=== PATIENT | female | born 1940 | race Caucasian/White ===

== ENCOUNTER → 2016-07-01 | Outpatient (CLI) | payer MEDICARE ==
[2016-07-01 12:19] LABS: ABSOLUTE BASOPHILS # (AUTO) 0.1 10^3/uL (0.0-0.2); ABSOLUTE EOSINOPHILS # (AUTO) 0.3 10^3/uL (0.0-0.6); ABSOLUTE LYMPHOCYTES (AUTO) 1.6 10^3/uL (0.5-4.7); ABSOLUTE MONOCYTES (AUTO) 0.8 10^3/uL (0.1-1.4); ABSOLUTE NEUT (AUTO) 4.4 10^3/uL (1.7-8.2); BASOPHILS % (AUTO) 1.1 % (0-2); EOSINOPHILS % (AUTO) 4.6 % (0-6); HEMATOCRIT 35.6 % (36.0-47.0); HEMOGLOBIN 11.7 g/dL (12.0-15.5); HGB HCT DIFFERENCE -0.5; LYMPHOCYTES % (AUTO) 22.8 % (13-45); MEAN CORPUSCULAR HEMOGLOBIN 29.2 pg (27.0-33.4); MEAN CORPUSCULAR HGB CONC 32.8 g/dL (32.0-36.0); MEAN CORPUSCULAR VOLUME 89 fl (80-97); MONOCYTES % (AUTO) 10.5 % (3-13); RED BLOOD COUNT 3.99 10^6/uL (3.72-5.28); RED CELL DISTRIBUTION WIDTH 14.2 % (11.5-14.0); WHITE BLOOD COUNT 7.2 10^3/uL (4.0-10.5)
[2016-07-01 12:43] LABS: ALANINE AMINOTRANSFERASE 24 U/L (9-52); ALBUMIN 4.3 g/dL (3.5-5.0); ALKALINE PHOSPHATASE 84 U/L (38-126); ANION GAP 15 (5-19); ASPARTATE AMINO TRANSFERASE 23 U/L (14-36); BILIRUBIN,TOTAL 0.5 mg/dL (0.2-1.3); BLOOD UREA NITROGEN 23 mg/dL (7-20); CALCIUM 10.1 mg/dL (8.4-10.2); CARBON DIOXIDE 26 mmol/L (22-30); CHLORIDE 101 mmol/L (98-107); CREATININE RESULT 1.17 mg/dL (0.52-1.25); GLUCOSE 152 mg/dL (75-110); POTASSIUM 4.9 mmol/L (3.6-5.0); SODIUM 141.7 mmol/L (137-145); TOTAL PROTEIN 6.9 g/dL (6.3-8.2)
[2016-07-01 12:48] LABS: C-REACTIVE PROTEIN < 5.0 mg/L (<10.0)
[2016-07-01 13:03] LABS: ERYTHROCYTE SEDIMENTATION RATE 22 mm/hr (0-30)
== END ==
LOC: OD 11:29
PROVIDERS: ATTEND Nurse Practitioner Family
DX: L89.153 Pressure ulcer of sacral region, stage 3 (principal)
CPT/HCPCS: 36415; 72220; 80053; 85025; 85652; 86140

== ENCOUNTER 2019-07-16 13:47 | Observation (INO) | payer MEDICARE ==
--- NOTE | 2019-07-16 14:31 | ER Document Report ---
ED Medical Screen (RME) - General Chief Complaint: Chest Pain Stated Complaint: CHEST PAIN Time Seen by Provider: 07/16/19 14:22 Primary Care Provider: VALERIE WRIGHT MD [Primary Care Provider] - Follow up as needed Mode of Arrival: Wheelchair Information source: Patient Notes: This 79-year-old female with history of high cholesterol hypertension breast cancer presents today with feelings of just not feeling right today. She reports her heart felt like it was racing. She reports he just did not feel right. She felt queasy. She reports not feeling that way now. But she is feeling nauseated because she has anything to eat. Denies history of cardiac disease. EKG shows atrial flutter. Respiratory rate even unlabored I have greeted and performed a rapid initial assessment of this patient. A comprehensive ED assessment and evaluation of the patient, analysis of test results and completion of the medical decision making process will be conducted by additional ED providers. TRAVEL OUTSIDE OF THE [place] IN LAST 30 DAYS: No - Related Data Allergies/Adverse Reactions: No Known Allergies Allergy (Verified 12/22/14 07:47) Past Medical History - Social History Chew tobacco use (# tins/day): No Frequency of alcohol use: None Drug Abuse: None - Past Medical History Cardiac Medical History: Reports: Hx Hypercholesterolemia - takes meds, Hx Hypertension - several years, takes meds Denies: Hx Atrial Fibrillation, Hx Congestive Heart Failure, Hx Coronary Artery Disease, Hx Heart Attack, Hx Peripheral Vascular Disease, Hx Pulmonary Embolism, Hx Heart Murmur Pulmonary Medical History: Reports: Hx Pneumonia - 06/2014 Denies: Hx Asthma, Hx Bronchitis, Hx COPD, Hx Respiratory Failure, Hx Sleep Apnea, Hx Tuberculosis Neurological Medical History: Endocrine Medical History: Denies: Hx Graves' Disease, Hx Hyperthyroidism, Hx Hypothyroidism Renal/ Medical History: Denies: Hx End Stage Renal Disease, Hx Kidney Stones, Hx Ovarian Cysts, Hx Peritoneal Dialysis, Hx Pelvic Inflammatory Disease Malignancy Medical History: Reports: Hx Breast Cancer - Mastectomy x2 2010 "ok to take BP on either arm". Denies: Hx Cervical Cancer, Hx Leukemia, Hx Lung Cancer, Hx Ovarian Cancer GI Medical History: Musculoskeltal Medical History: Reports Hx Arthritis, Denies Hx Fibromyalgia, Denies Hx Muscular Dystrophy, Denies Hx Systemic Lupus Erythematosus Psychiatric Medical History: Denies: Hx Bipolar Disorder, Hx Depression, Hx Post Traumatic Stress Disorder, Hx Schizophrenia Traumatic Medical History: Denies: Hx Fractures Infectious Medical History: Denies: Hx HIV Past Surgical History: Reports: Hx Hysterectomy, Hx Mastectomy - Bilateral 12/2010 "OK to take BP on either arm", Hx Tonsillectomy - at 10 yrs old. Denies: Hx Appendectomy, Hx Bowel Surgery, Hx Section, Hx Cholecystectomy, Hx Coronary Artery Bypass Graft, Hx Gastric Bypass Surgery, Hx Herniorrhaphy, Hx Pacemaker, Hx Tubal Ligation - Immunizations Hx Diphtheria, Pertussis, Tetanus Vaccination: No Physical Exam - Vital signs Vitals: Pulse Ox 97 07/16/19 15:26 Course - Vital Signs Vital signs: Temp Pulse Resp BP Pulse Ox 97 07/16/19 15:26 - Laboratory Result Diagrams: 07/16/19 14:55 07/16/19 14:55 Laboratory results interpreted by me: 07/16/19 14:55 Potassium 5.1 H Chloride 97 L Est GFR ( Amer) 56 L Est GFR (MDRD) Non-Af 46 L Glucose 171 H Calcium 10.3 H AST 37 H Doctor's Discharge - Discharge Referrals: VALERIE WRIGHT MD [Primary Care Provider] - Follow up as needed
--- NOTE | 2019-07-16 15:08 | RADIOLOGY REPORT (SQ) ---
EXAM DESCRIPTION: CHEST SINGLE VIEW COMPLETED DATE/TIME: 07/16/2019 3:00 pm REASON FOR STUDY: chest fluttering COMPARISON: PA and lateral views of the chest from 04/19/2016. EXAM PARAMETERS: NUMBER OF VIEWS: One view. TECHNIQUE: An AP view of the chest was obtained. RADIATION DOSE: NA LIMITATIONS: None. FINDINGS: LUNGS AND PLEURA: No consolidation, pleural effusion or pneumothorax. MEDIASTINUM AND HILAR STRUCTURES: No mediastinal or hilar contour abnormality. HEART AND VASCULAR STRUCTURES: The cardiac silhouette and pulmonary vasculature are within normal angulo its. BONES: No acute findings. HARDWARE: Surgical clips that project within the axillae. OTHER: No other finding. IMPRESSION: No acute cardiopulmonary process. TECHNICAL DOCUMENTATION: JOB ID: [id number] [employer]- All Rights Reserved Reading location - IP/workstation name: [email or web address]
[2019-07-16 15:19] LABS: ABSOLUTE EOSINOPHILS # (AUTO) 0.1 10^3/uL (0.0-0.6); ABSOLUTE LYMPHOCYTES (AUTO) 1.6 10^3/uL (0.5-4.7); ABSOLUTE MONOCYTES (AUTO) 0.9 10^3/uL (0.1-1.4); ABSOLUTE NEUT (AUTO) 6.8 10^3/uL (1.7-8.2); BASOPHILS % (AUTO) 0.5 % (0-2); EOSINOPHILS % (AUTO) 0.6 % (0-6); HEMATOCRIT 43.5 % (36.0-47.0); HEMOGLOBIN 15.1 g/dL (12.0-15.5); LYMPHOCYTES % (AUTO) 16.6 % (13-45); MEAN CORPUSCULAR HEMOGLOBIN 31.2 pg (27.0-33.4); MEAN CORPUSCULAR HGB CONC 34.8 g/dL (32.0-36.0); MEAN CORPUSCULAR VOLUME 90 fl (80-97); MONOCYTES % (AUTO) 9.7 % (3-13); PLATELET COUNT 285 10^3/uL (150-450); RED BLOOD COUNT 4.85 10^6/uL (3.72-5.28); RED CELL DISTRIBUTION WIDTH 13.4 % (11.5-14.0); SEGMENTED NEUTROPHILS % (AUTO) 72.6 % (42-78); TOTAL CELLS COUNTED % (AUTO) 100 %; WHITE BLOOD COUNT 9.4 10^3/uL (4.0-10.5)
[2019-07-16 15:37] LABS: ALBUMIN 4.6 g/dL (3.5-5.0); ALKALINE PHOSPHATASE 116 U/L (38-126); ANION GAP 15 (5-19); ASPARTATE AMINO TRANSFERASE 37 U/L (14-36); BILIRUBIN,DIRECT 0.3 mg/dL (0.0-0.4); BILIRUBIN,TOTAL 0.6 mg/dL (0.2-1.3); BLOOD UREA NITROGEN 20 mg/dL (7-20); CALCIUM 10.3 mg/dL (8.4-10.2); CARBON DIOXIDE 26 mmol/L (22-30); CHLORIDE 97 mmol/L (98-107); GLUCOSE 171 mg/dL (75-110); POTASSIUM 5.1 mmol/L (3.6-5.0); TOTAL PROTEIN 7.9 g/dL (6.3-8.2)
--- NOTE | 2019-07-16 17:44 | EKG REPORT ---
SEVERITY:- ABNORMAL ECG - ATRIAL FLUTTER WITH 2:1 AV BLOCK , RVR : Confirmed by: Luis Howard MD 16-Jul-2019 17:43:55
[2019-07-16 19:22] LABS: APPEARANCE,URINE CLEAR; BILIRUBIN,URINE NEGATIVE (NEGATIVE); COLOR,URINE STRAW; GLUCOSE, URINE NEGATIVE (NEGATIVE); KETONES,URINE NEGATIVE (NEGATIVE); LEUKOCYTE ESTERASE,URINE NEGATIVE (NEGATIVE); NITRITE,URINE NEGATIVE (NEGATIVE); PROTEIN,URINE NEGATIVE (NEGATIVE); URINE SPECIFIC GRAVITY 1.004; UROBILINOGEN,URINE NEGATIVE mg/dL (<2.0)
[2019-07-16] MEDS ORDERED: DILTIAZEM HCL INJ 25 MG/5 ML VIAL IV ONE (21:38)
--- NOTE | 2019-07-16 21:48 | ER Document Report ---
Entered by YOLY BARTLETT SCRIBE 07/16/19 [id number] Acting as scribe for:DELORES CHEN IV, MD ED General - General Chief Complaint: Palpitations Stated Complaint: CHEST PAIN Time Seen by Provider: 07/16/19 14:22 Primary Care Provider: VALERIE WRIGHT MD [Primary Care Provider] - Follow up as needed Mode of Arrival: Wheelchair Information source: Patient Notes: This 79 year old female patient with a history of hypertension and hypercholesterolemia presents to the ED today with complaints of sudden onset heart racing that began prior to arrival this morning. Patient states that she has never experienced these symptoms before. Patient reports associated nausea, but denies any pain, shortness of breath, or dizziness. Patient denies history of A fib or irregular heart rate. TRAVEL OUTSIDE OF THE [place] IN LAST 30 DAYS: No - Related Data Allergies/Adverse Reactions: No Known Allergies Allergy (Verified 12/22/14 07:47) Past Medical History - General Information source: Patient - Social History Smoking Status: Never Smoker Cigarette use (# per day): No Chew tobacco use (# tins/day): No Smoking Education Provided: No Frequency of alcohol use: None Drug Abuse: None Family History: Reviewed & Not Pertinent Patient has suicidal ideation: No Patient has homicidal ideation: No - Past Medical History Cardiac Medical History: Reports: Hx Hypercholesterolemia - takes meds, Hx Hypertension - several years, takes meds Pulmonary Medical History: Reports: Hx Pneumonia - 06/2014 Neurological Medical History: Malignancy Medical History: Reports: Hx Breast Cancer - Mastectomy x2 2010 "ok to take BP on either arm" GI Medical History: Musculoskeletal Medical History: Reports Hx Arthritis Psychiatric Medical History: Infectious Medical History: Past Surgical History: Reports: Hx Hysterectomy, Hx Mastectomy - Bilateral 12/22 "OK to take BP on either arm", Hx Tonsillectomy - at 10 yrs old - Immunizations Hx Diphtheria, Pertussis, Tetanus Vaccination: No Hx Pneumococcal Vaccination: 02/22/16 Review of Systems - Review of Systems Constitutional: No symptoms reported EENT: No symptoms reported Cardiovascular: See HPI, Heart racing Respiratory: See HPI. denies: Short of breath Gastrointestinal: See HPI, Nausea Genitourinary: No symptoms reported Female Genitourinary: No symptoms reported Musculoskeletal: No symptoms reported Skin: No symptoms reported Hematologic/Lymphatic: No symptoms reported -: Yes All other systems reviewed and negative Physical Exam - Vital signs Vitals: Resp Pulse Ox 18 97 07/16/19 15:12 07/16/19 15:12 - General General appearance: Alert - HEENT Head: Normocephalic, Atraumatic Eyes: Normal Pupils: PERRL - Respiratory Respiratory status: No respiratory distress Chest status: Nontender Breath sounds: Normal Chest palpation: Normal - Cardiovascular Rhythm: Irregularly irregular, Tachycardia Heart sounds: Normal auscultation Murmur: No - Abdominal Inspection: Normal Distension: No distension Bowel sounds: Normal Tenderness: Nontender - Abdomen soft Organomegaly: No organomegaly - Back Back: Normal, Nontender - Extremities General upper extremity: Normal inspection General lower extremity: Normal inspection - Neurological Neuro grossly intact: Yes - Psychological Associated symptoms: Normal affect, Normal mood - Skin Skin Temperature: Warm Skin Moisture: Dry Skin Color: Normal Course - Re-evaluation Re-evalutation: 07/16/19 23:08 Results of ED MSE discussed with patient and patient's significant other. Plan to admit patient for new onset A. fib with RVR discussed with patient. Patient agreed to be admitted. All questions were answered. - Vital Signs Vital signs: Temp Pulse Resp BP Pulse Ox 22 H 126/88 H 95 07/16/19 21:48 07/16/19 21:48 07/16/19 21:48 - Laboratory Result Diagrams: 07/16/19 14:55 07/16/19 14:55 Laboratory results interpreted by me: 07/16/19 07/16/19 14:55 19:07 Potassium 5.1 H Chloride 97 L Est GFR ( Amer) 56 L Est GFR (MDRD) Non-Af 46 L Glucose 171 H Calcium 10.3 H AST 37 H Urine Blood SMALL H - Diagnostic Test Radiology reviewed: Reports reviewed - EKG Interpretation by Me Additional EKG results interpreted by me: 07/16/19 23:06 EKG obtained on 07/16/2019 at 1353 hrs. was interpreted by this MD. Findings: Irregularly irregular tachycardia. Rate 130. Normal axis. P waves do not appear to proceed QRS complexes. QRS complex appears narrow. ST segments are nonspecific.. Impression: Atrial fibrillation with RVR. - Consults DR. MARY VILLALOBOS Time consulted: 23:10 - RECOMMENDED [facility] AND IMCU ADMISSION Reason for consultation: 07/16/19 23:12 NEW ONSET A FIB WITH RVR Critical Care Note - Critical Care Note Total time excluding time spent on procedures (mins): 90 - diltiazem drip for a fib with rvr Discharge - Discharge Clinical Impression: Atrial fibrillation with RVR Condition: Good Disposition: ADMITTED OBSERVATION Admitting Provider: Vincent (Hospitalist) Unit Admitted: IMCU Referrals: VALERIE WRIGHT MD [Primary Care Provider] - Follow up as needed I personally performed the services described in the documentation, reviewed and edited the documentation which was dictated to the scribe in my presence, and it accurately records my words and actions.
[2019-07-16] MEDS ORDERED: DILTIAZEM HCL/D5W 125 MG/125 ML RTUINJ IV PRN ×2 (21:55→23:23)
[2019-07-16] MEDS ORDERED: ENOXAPARIN SODIUM INJ 100 MG/1 ML DISP.SYRIN SUBCUT ONE (23:10)
[2019-07-16] MEDS ORDERED: ACETAMINOPHEN 325 MG TABLET PO PRN (23:26)
[2019-07-16] MEDS ORDERED: LORAZEPAM INJ 2 MG/1 ML VIAL IV PRN (23:26)
[2019-07-16] MEDS ORDERED: MELATONIN 5 MG TABLET PO PRN (23:26)
[2019-07-16] MEDS ORDERED: MAGNESIUM HYDROXIDE SUSP 30 ML UDCUP PO PRN (23:26)
[2019-07-16] MEDS ORDERED: MAG HYDROX/AL HYDROX/SIMETH SUSP 30 ML UDCUP PO PRN (23:26)
[2019-07-16] MEDS ORDERED: MORPHINE SULFATE 10 MG/ML INJ IV PRN ×3 (23:26)
[2019-07-16] MEDS ORDERED: ENOXAPARIN SODIUM INJ 100 MG/1 ML DISP.SYRIN SUBCUT SCH (23:30)
[2019-07-16] MEDS ORDERED: HYDROCODONE/ACETAMINOPHEN 5-325 MG TABLET PO PRN (23:31)
[2019-07-16] MEDS ORDERED: ONDANSETRON HCL INJ/PF 4 MG/2 ML SDV IV PRN (23:34)
[2019-07-16] MEDS ORDERED: ATORVASTATIN CALCIUM 10 MG TABLET PO ONE (23:59)
[2019-07-17 02:33] LABS: CREATINE KINASE MB 0.68 ng/mL (<4.55)
[2019-07-17 02:34] LABS: TROPONIN I < 0.012 ng/mL
--- NOTE | 2019-07-17 03:40 | PDOC H&P ---
History of Present Illness Admission Date/PCP: 07/16/19 23:13 VALERIE WRIGHT MD Patient complains of: Palpitations History of Present Illness: LYSSA ROBLES is a 79 year old female who presented to the emergency room with acute heart palpitations. The patient admits that she began having a racing heartbeat, accompanied by a feeling of malaise and associated with nausea/queasiness. She denies other associated or accompanying signs and symptoms. She admits prior similar episodes related to her heart. She has not identified any aggravating or ameliorating factors for her heart palpitations. In the emergency room she was found to have atrial fibrillation with a rapid ventricular response and was treated with intravenous diltiazem as a bolus and continuous infusion. Her heart rate was adequately controlled and she was subsequently admitted to the hospital for further evaluation and treatment. Past Medical History Cardiac Medical History: Reports: Atrial Fibrillation, Hyperlipidema, Hypertension Denies: Congestive Heart Failure, Coronary Artery Disease, Myocardial Infarction, Peripheral Vascular Disease, Pulmonary Embolism, Heart Murmur Pulmonary Medical History: Reports: Pneumonia - 06/2014 Denies: Asthma, Bronchitis, Chronic Obstructive Pulmonary Disease (COPD), Respiratory Failure, Sleep Apnea, Tuberculosis EENT Medical History: Denies: Cataracts, Ears - Hearing aids Neurological Medical History: Denies: Hemorrhagic CVA, Ischemic CVA Endocrine Medical History: Reports: Obesity Denies: Diabetes Mellitus Type 1, Diabetes Mellitus Type 2, Hyperthyroidism, Hypothyroidism Renal/ Medical History: Denies: Chronic Kidney Disease, Nephrolithiasis Malignancy Medical History: Reports: Breast Cancer - Mastectomy 2010 "ok to take BP on either arm" GI Medical History: Denies: Cirrhosis, Crohn's Disease, Gastroesophageal Reflux Disease, Hepat itis, Peptic Ulcer Disease, Ulcerative Colitis Musculoskeltal Medical History: Reports: Arthritis Denies: Gout Skin Medical History: Denies: Eczema, Psoriasis Psychiatric Medical History: Denies: Alcohol Dependency, Depression, Substance Abuse, Tobacco Dependency Traumatic Medical History: Reports: None Hematology: Denies: Anemia, Bleeding Tendencies Infectious Medical History: Reports: None Past Surgical History Past Surgical History: Reports: Hysterectomy, Knee Replacement, Mastectomy - Bilateral 12/2010 "OK to take BP on either arm", Orthopedic Surgery - Bilateral knee surgeries, Tonsillectomy - at 10 yrs old Social History Information Source: Patient Lives with: Spouse/Significant other Smoking Status: Never Smoker Electronic Cigarette use?: No Frequency of Alcohol Use: None Hx Recreational Drug Use: No Drugs: None Hx Prescription Drug Abuse: No - Advance Directive Resuscitation Status: Full Code Surrogate healthcare decision maker:: Yosvany Robles Family History Family History: DM. denies: CAD, Hypertension, Malignancy Parental Family History Reviewed: Yes Children Family History Reviewed: No Sibling(s) Family History Reviewed.: Yes Medication/Allergy Home Medications: Aspirin [Aspirin EC] 81 mg PO DAILY 12/21/14 Atorvastatin Calcium [Lipitor] 10 mg PO QAM 12/21/14 Benazepril HCl 40 mg PO QAM 12/21/14 Amlodipine Besylate [Norvasc 10 mg Tablet] 10 mg PO QAM 01/03/16 Carvedilol [Coreg] 1 tab PO BID 05/07/16 Hydrochlorothiazide 25 mg PO QAM 05/07/16 Hydrocodone/Acetaminophen [[place] 5-325 mg Tablet] 1 tab PO Q6HP PRN #0 tablet 06/01/16 Rivaroxaban [Xarelto 10 mg Tablet] 10 mg PO QHS #0 tablet 06/01/16 Allergies/Adverse Reactions: No Known Allergies Allergy (Verified 12/22/14 07:47) Review of Systems Constitutional: PRESENT: as per HPI, other - Malaise. ABSENT: chills, fever(s) Eyes: ABSENT: visual disturbances, other - Eye pain Ears: ABSENT: hearing changes, other - Ear pain Nose, Mouth, and Throat: ABSENT: headache(s), mouth pain, sore throat Cardiovascular: PRESENT: as per HPI, palpitations. ABSENT: chest pain, dyspnea on exertion, edema, orthropnea Respiratory: ABSENT: cough, dyspnea Gastrointestinal: PRESENT: as per HPI, nausea. ABSENT: abdominal pain, constipation, diarrhea, vomiting Genitourinary: ABSENT: difficulty urinating, dysuria, hematuria Musculoskeletal: ABSENT: back pain, joint swelling, muscle weakness Integumentary: ABSENT: pruritus, rash Neurological: ABSENT: confusion, convulsions, focal weakness, memory loss, syncope Psychiatric: ABSENT: anxiety, depression Endocrine: ABSENT: cold intolerance, heat intolerance, polydipsia, polyphagia, polyuria Hematologic/Lymphatic: ABSENT: easy bleeding, easy bruising Allergic/Immunologic: ABSENT: seasonal rhinorrhea Physical Exam Vital Signs: Temp Pulse Resp BP Pulse Ox 22 H 146/57 H 94 07/16/19 23:16 07/16/19 23:16 07/16/19 23:16 Intake & Output 07/14/19 07/15/19 07/16/19 23:59 23:59 23:59 Intake Total 13 Balance 13 Weight 95.254 kg General appearance: PRESENT: no acute distress, cooperative, obese Head exam: PRESENT: atraumatic, normocephalic Eye exam: PRESENT: conjunctiva pink. ABSENT: conjunctival injection, scleral icterus Ear exam: PRESENT: normal external ear exam. ABSENT: bleeding, drainage Mouth exam: PRESENT: dry mucosa, neck supple Neck exam: ABSENT: thyromegaly, tracheal deviation Respiratory exam: PRESENT: clear to auscultation cathie, symmetrical, unlabored Cardiovascular exam: PRESENT: irregular rhythm - Irregularly irregular rate and rhythm. ABSENT: clicks, gallop, rubs Pulses: PRESENT: normal radial pulses, normal dorsalis pedis pul Vascular exam: PRESENT: normal capillary refill. ABSENT: pallor GI/Abdominal exam: PRESENT: normal bowel sounds, soft Rectal exam: PRESENT: deferred Extremities exam: ABSENT: joint swelling, pedal edema Musculoskeletal exam: ABSENT: deformity, dislocation Neurological exam: PRESENT: alert, oriented to person, oriented to place, oriented to time, oriented to situation, CN II-XII grossly intact. ABSENT: motor sensory deficit Psychiatric exam: PRESENT: appropriate affect, normal mood Skin exam: PRESENT: dry, intact, warm. ABSENT: jaundice, rash, urticaria Results Laboratory Results: 07/16/19 14:55 07/16/19 14:55 07/16/19 07/16/19 07/16/19 14:55 14:55 19:07 WBC 9.4 RBC 4.85 Hgb 15.1 Hct 43.5 MCV 90 MCH 31.2 MCHC 34.8 RDW 13.4 Plt Count 285 Seg Neutrophils % 72.6 Sodium 138.4 Potassium 5.1 H Chloride 97 L Carbon Dioxide 26 Anion Gap 15 BUN 20 Creatinine 1.14 Est GFR ( Amer) 56 L Glucose 171 H Calcium 10.3 H Total Bilirubin 0.6 AST 37 H Alkaline Phosphatase 116 Total Protein 7.9 Albumin 4.6 Urine Color STRAW Urine Appearance CLEAR Urine pH 6.0 Ur Specific [place] 1.004 Urine Protein NEGATIVE Urine Glucose (UA) NEGATIVE Urine Ketones NEGATIVE Urine Blood SMALL H Urine Nitrite NEGATIVE Ur Leukocyte Esterase NEGATIVE Urine WBC (Auto) 1 Urine RBC (Auto) 1 07/16/19 07/16/19 14:55 19:33 Troponin I < 0.012 < 0.012 Impressions: Chest X-Ray 07/16/19 14:29 IMPRESSION: No acute cardiopulmonary process. Assessment and Plan - Diagnosis (1) Atrial fibrillation with RVR Is this a current diagnosis for this admission?: Yes (2) Chronic anticoagulation Is this a current diagnosis for this admission?: Yes (3) Hypertension Qualifiers: Hypertension type: essential hypertension Qualified Code(s): I10 - Ess ential (primary) hypertension Is this a current diagnosis for this admission?: Yes (4) Hyperlipidemia Qualifiers: Hyperlipidemia type: unspecified Qualified Code(s): E78.5 - Hyperlipidemia, unspecified Is this a current diagnosis for this admission?: Yes (5) DJD (degenerative joint disease) of knee Qualifiers: Osteoarthritis type: primary Laterality: left Qualified Code(s): M17.12 - Unilateral primary osteoarthritis, left knee Is this a current diagnosis for this admission?: Yes (6) Obesity (BMI 30-39.9) Is this a current diagnosis for this admission?: Yes - Plan Summary Summary: Patient is admitted to the [facility] where she will receive routine supportive and supplemental cares. She will be treated with IV diltiazem via infusion titrated to a heart rate of less than 100. She will receive morphine sulfate 2 to 4 mg IV every 2 hours as needed for pain. She will receive Ativan 1 mg IV every 4 hours as needed anxiety or restlessness. Serial cardiac enzymes will be obtained. CBCs, metabolic profiles and magnesium levels will be obtained on a regular basis as appropriate. A TSH will be obtained. Patient will be continued on her usual home medications for her chronic medical problems as appropriate and per formulary availability. - Time Time Spent with patient: 15-24 minutes Medications reviewed and adjusted accordingly: Yes Anticipated discharge: Home - Inpatient Certification Based on my medical assessment, after consideration of the patient's comorbidities, presenting symptoms, or acuity I expect that the services needed warrant INPATIENT care.: Yes I certify that my determination is in accordance with my understanding of Medicare's requirements for reasonable and necessary INPATIENT services [42 CFR 412.3e].: Yes Medical Necessity: Need Close Monitoring Due to Risk of Patient Decompensation, Need For Continuous Telemetry Monitoring, Risk of Complication if Not Cared For in Hospital
[2019-07-17] MEDS ORDERED: PANTOPRAZOLE SODIUM 20 MG TABLET.DR PO SCH (06:00)
[2019-07-17] MEDS ORDERED: AMLODIPINE BESYLATE 10 MG TABLET PO SCH (08:00)
[2019-07-17] MEDS ORDERED: HYDROCHLOROTHIAZIDE 25 MG TABLET PO SCH (08:00)
[2019-07-17 08:28] LABS: HEMATOCRIT 39.4 % (36.0-47.0); HEMOGLOBIN 13.6 g/dL (12.0-15.5); MEAN CORPUSCULAR HEMOGLOBIN 30.8 pg (27.0-33.4); MEAN CORPUSCULAR HGB CONC 34.5 g/dL (32.0-36.0); MEAN CORPUSCULAR VOLUME 89 fl (80-97); PLATELET COUNT 250 10^3/uL (150-450); RED BLOOD COUNT 4.41 10^6/uL (3.72-5.28); RED CELL DISTRIBUTION WIDTH 13.4 % (11.5-14.0); WHITE BLOOD COUNT 8.5 10^3/uL (4.0-10.5)
[2019-07-17 08:47] LABS: ANION GAP 12 (5-19); BLOOD UREA NITROGEN 19 mg/dL (7-20); CALCIUM 9.5 mg/dL (8.4-10.2); CARBON DIOXIDE 23 mmol/L (22-30); CHLORIDE 102 mmol/L (98-107); CREATINE KINASE 47 U/L (30-135); GLUCOSE 149 mg/dL (75-110)
[2019-07-17 08:59] LABS: CREATINE KINASE MB 0.57 ng/mL (<4.55)
[2019-07-17 09:00] LABS: POTASSIUM 4.1 mmol/L (3.6-5.0)
[2019-07-17 09:32] LABS: TROPONIN I < 0.012 ng/mL
[2019-07-17] MEDS ORDERED: CARVEDILOL 6.25 MG TABLET PO SCH (10:00)
[2019-07-17] MEDS ORDERED: ASPIRIN 81 MG TABLET, ENT COATED PO SCH (10:00)
[2019-07-17] MEDS ORDERED: DOCUSATE SODIUM 100 MG CAPSULE PO SCH (10:00)
[2019-07-17] MEDS ORDERED: BENAZEPRIL HCL 20 MG TABLET PO SCH (10:00)
[2019-07-17] MEDS ORDERED: DILTIAZEM HCL 240 MG CAPSULE.CR PO ONE (12:45)
[2019-07-17] MEDS ORDERED: APIXABAN 5 MG TABLET PO ONE (12:46)
--- NOTE | 2019-07-17 12:51 | PDOC PROGRESS REPORT ---
Subjective Progress Note for:: 07/17/19 Subjective:: The patient feels better this morning. No fluttering in her chest. Reason For Visit: ATRIAL FIBRILLATION WITH RAPID VENTRICULAR Physical Exam Vital Signs: Temp Pulse Resp BP Pulse Ox 98.1 F 81 20 117/63 94 07/17/19 08:02 07/17/19 12:00 07/17/19 08:02 07/17/19 12:00 07/17/19 08:02 Intake & Output 07/16/19 07/17/19 07/18/19 06:59 06:59 06:59 Intake Total 134 125 Balance 134 125 Weight 102.2 kg General appearance: PRESENT: no acute distress, cooperative, morbidly obese, well-developed Head exam: PRESENT: atraumatic, normocephalic Respiratory exam: PRESENT: clear to auscultation cathie, symmetrical, unlabored. ABSENT: rales, rhonchi, tachypnea, wheezes Cardiovascular exam: PRESENT: irregular rhythm GI/Abdominal exam: PRESENT: normal bowel sounds, soft. ABSENT: distended, tenderness Neurological exam: PRESENT: alert, awake, oriented to person, oriented to place, oriented to time, oriented to situation, CN II-XII grossly intact Psychiatric exam: PRESENT: appropriate affect. ABSENT: agitated, anxious Focused psych exam: ABSENT: delusional, restlessness Results Laboratory Results: 07/17/19 08:08 07/17/19 08:08 07/16/19 07/16/19 07/16/19 14:55 14:55 14:55 WBC 9.4 RBC 4.85 Hgb 15.1 Hct 43.5 MCV 90 MCH 31.2 MCHC 34.8 RDW 13.4 Plt Count 285 Seg Neutrophils % 72.6 Sodium 138.4 Potassium 5.1 H Chloride 97 L Carbon Dioxide 26 Anion Gap 15 BUN 20 Creatinine 1.14 Est GFR ( Amer) 56 L Glucose 171 H Calcium 10.3 H Magnesium Total Bilirubin 0.6 AST 37 H Alkaline Phosphatase 116 Total Protein 7.9 Albumin 4.6 TSH Free T3 pg/mL 3.52 Urine Color Urine Appearance Urine pH Ur Specific [place] Urine Protein Urine Glucose (UA) Urine Ketones Urine Blood Urine Nitrite Ur Leukocyte Esterase Urine WBC (Auto) Urine RBC (Auto) 07/16/19 07/17/19 07/17/19 19:07 08:08 08:08 WBC 8.5 RBC 4.41 Hgb 13.6 Hct 39.4 MCV 89 MCH 30.8 MCHC 34.5 RDW 13.4 Plt Count 250 Seg Neutrophils % Sodium 137.4 Potassium 4.1 D Chloride 102 Carbon Dioxide 23 Anion Gap 12 BUN 19 Creatinine 1.08 Est GFR ( Amer) 59 L Glucose 149 H Calcium 9.5 Magnesium 1.8 Total Bilirubin AST Alkaline Phosphatase Total Protein Albumin TSH Free T3 pg/mL Urine Color STRAW Urine Appearance CLEAR Urine pH 6.0 Ur Specific [place] 1.004 Urine Protein NEGATIVE Urine Glucose (UA) NEGATIVE Urine Ketones NEGATIVE Urine Blood SMALL H Urine Nitrite NEGATIVE Ur Leukocyte Esterase NEGATIVE Urine WBC (Auto) 1 Urine RBC (Auto) 1 07/17/19 08:08 WBC RBC Hgb Hct MCV MCH MCHC RDW Plt Count Seg Neutrophils % Sodium Potassium Chloride Carbon Dioxide Anion Gap BUN Creatinine Est GFR ( Amer) Glucose Calcium Magnesium Total Bilirubin AST Alkaline Phosphatase Total Protein Albumin TSH 0.63 Free T3 pg/mL Urine Color Urine Appearance Urine pH Ur Specific [place] Urine Protein Urine Glucose (UA) Urine Ketones Urine Blood Urine Nitrite Ur Leukocyte Esterase Urine WBC (Auto) Urine RBC (Auto) 07/16/19 07/16/19 07/16/19 14:55 19:33 19:33 Creatine Kinase 50 CK-MB (CK-2) Troponin I < 0.012 < 0.012 07/16/19 07/17/19 07/17/19 19:33 01:26 01:26 Creatine Kinase 45 CK-MB (CK-2) 0.76 0.68 Troponin I Cancelled < 0.012 07/17/19 07/17/19 08:08 08:08 Creatine Kinase 47 CK-MB (CK-2) 0.57 Troponin I < 0.012 Impressions: Chest X-Ray 07/16/19 14:29 IMPRESSION: No acute cardiopulmonary process. Assessment and Plan - Plan Summary Summary: Patient is admitted to the [facility] where she will receive routine supportive and supplemental cares. She will be treated with IV diltiazem via infusion titrated to a heart rate of less than 100. She will receive morphine sulfate 2 to 4 mg IV every 2 hours as needed for pain. She will receive Ativan 1 mg IV every 4 hours as needed anxiety or restlessness. Serial cardiac enzymes will be obtained. CBCs, metabolic profiles and magnesium levels will be obtained on a regular basis as appropriate. A TSH will be obtained. Patient will be continued on her usual home medications for her chronic medical problems as appropriate and per formulary availability.
[2019-07-17 15:18] VITALS: BP 133/58
--- NOTE | 2019-07-17 15:20 | PDOC DISCHARGE SUMMARY ---
Impression - Admit/DC Date/PCP Admission Date/Primary Care Provider: 07/16/19 23:13 VALERIE RENNER MD Discharge Date: 07/17/19 - Discharge Diagnosis (1) Atrial fibrillation with RVR Is this a current diagnosis for this admission?: Yes (2) Hypertension Is this a current diagnosis for this admission?: Yes (3) Hyperlipidemia Is this a current diagnosis for this admission?: Yes (4) Chronic anticoagulation Is this a current diagnosis for this admission?: Yes (5) Morbid obesity with BMI of 40.0-44.9, adult Is this a current diagnosis for this admission?: Yes (6) DJD (degenerative joint disease) of knee Is this a current diagnosis for this admission?: Yes - Assessment Summary: Patient is admitted to the [facility] where she will receive routine supportive and forrester pplemental cares. She will be treated with IV diltiazem via infusion titrated to a heart rate of less than 100. She will receive morphine sulfate 2 to 4 mg IV every 2 hours as needed for pain. She will receive Ativan 1 mg IV every 4 hours as needed anxiety or restlessness. Serial cardiac enzymes will be obtained. CBCs, metabolic profiles and magnesium levels will be obtained on a regular basis as appropriate. A TSH will be obtained. Patient will be continued on her usual home medications for her chronic medical problems as appropriate and per formulary availability. - Additional Information Resuscitation Status: Full Code Discharge Diet: Cardiac Discharge Activity: Activity As Tolerated Referrals: VALERIE RENNER MD [Primary Care Provider] - Follow up as needed KAMRAN MELÉNDEZ MD [ACTIVE STAFF] - Prescriptions: Diltiazem HCl [Cardizem Cd 240 mg Capsule.cr] 240 mg PO DAILY 90 Days #90 capsule.cr Diltiazem HCl [Diltiazem 24Hr ER] 240 mg PO DAILY 10 Days #10 cap.sa.24h Diltiazem HCl [Diltiazem 24Hr ER] 240 mg PO DAILY 10 Days #10 cap.sa.24h Apixaban [Eliquis 5 mg Tablet] 5 mg PO BID 10 Days #20 tablet Apixaban [Eliquis 5 mg Tablet] 5 mg PO BID 90 Days #180 tablet Apixaban [Eliquis 5 mg Tablet] 5 mg PO BID 10 Days #20 tablet Home Medications: Amlodipine Besylate [Norvasc 5 mg Tablet] 5 mg PO DAILY 07/17/19 Apixaban [Eliquis 5 mg Tablet] 5 mg PO BID 10 Days #20 tablet 07/17/19 Apixaban [Eliquis 5 mg Tablet] 5 mg PO BID 10 Days #20 tablet 07/17/19 Apixaban [Eliquis 5 mg Tablet] 5 mg PO BID 90 Days #180 tablet 07/17/19 Aspirin [Adult Low Dose Aspirin EC] 81 mg PO DAILY 07/17/19 Aspirin [Ecotrin 81 mg EC Tablet] 81 mg PO DAILY tabec 07/17/19 Atorvastatin Calcium [Lipitor 10 mg Tablet] 10 mg PO QHS 07/17/19 Atorvastatin Calcium [Lipitor 10 mg Tablet] 10 mg PO QHS tablet 07/17/19 Diltiazem HCl [Cardizem Cd 240 mg Capsule.cr] 240 mg PO DAILY 90 Days #90 capsule.cr 07/17/19 Diltiazem HCl [Diltiazem 24Hr ER] 240 mg PO DAILY 10 Days #10 cap.sa.24h 07/17/19 Diltiazem HCl [Diltiazem 24Hr ER] 240 mg PO DAILY 10 Days #10 cap.sa.24h 07/17/19 Docusate Sodium [Colace 100 mg Capsule] 100 mg PO BID capsule 07/17/19 Gabapentin [Neurontin 300 mg Capsule] 300 mg PO QHS 07/17/19 Hydrochlorothiazide [Hydrodiuril 25 mg Tablet] 25 mg PO QAM tablet 07/17/19 Lisinopril/Hydrochlorothiazide [Lisinopril-Hctz 20-25 mg Tab] 1 each PO DAILY 07/17/19 History of Present Illiness History of Present Illness: LYSSA ROBLES is a 79 year old female who presented to the emergency room with acute heart palpitations. The patient admits that she began having a racing heartbeat, accompanied by a feeling of malaise and associated with nausea/queasiness. She denies other associated or accompanying signs and symptoms. She admits prior similar episodes related to her heart. She has not identified any aggravating or ameliorating factors for her heart palpitations. In the emergency room she was found to have atrial fibrillation with a rapid ventricular response and was treated with intravenous diltiazem as a bolus and continuous infusion. Her heart rate was adequately controlled and she was subsequently admitted to the hospital for further evaluation and treatment. Hospital Course Hospital Course: The patient's heart rate was rapidly controlled with the diltiazem drip. Because it is very effective she was converted to extended release diltiazem 240 mg daily. The carvedilol was discontinued. With her atrial fibrillation she now requires chronic anticoagulation. This was accomplished with apixaban. Her hypertension and hyperlipidemia were stable. She did experience her chronic pain. This is mostly from degenerative joint disease in her knee and made worse by her morbid obesity. I am referring the patient to Dr. Meléndez for outpatient cardiology. Physical Exam Vital Signs: Temp Pulse Resp BP Pulse Ox 98.1 F 87 20 133/58 H 94 07/17/19 15:16 07/17/19 15:16 07/17/19 15:16 07/17/19 15:16 07/17/19 15:16 Intake & Output 07/16/19 07/17/19 07/18/19 06:59 06:59 06:59 Intake Total 134 365 Balance 134 365 Weight 102.2 kg General appearance: PRESENT: no acute distress, cooperative, morbidly obese, well-developed Head exam: PRESENT: atraumatic, normocephalic Eye exam: PRESENT: conjunctiva pink. ABSENT: scleral icterus Ear exam: PRESENT: normal external ear exam. ABSENT: bleeding, drainage Respiratory exam: PRESENT: clear to auscultation cathie, symmetrical, unlabored. ABSENT: accessory muscle use, prolonged expiratory phas, rales, rhonchi, tachypnea, wheezes Cardiovascular exam: PRESENT: irregular rhythm GI/Abdominal exam: PRESENT: soft. ABSENT: distended - Protuberant abdomen, guarding, tenderness Rectal exam: PRESENT: deferred Gentrourinary exam: ABSENT: indwelling catheter Extremities exam: PRESENT: pedal edema Musculoskeletal exam: PRESENT: ambulatory. ABSENT: deformity Neurological exam: PRESENT: alert, awake, oriented to person, oriented to place, oriented to time, oriented to situation, CN II-XII grossly intact Psychiatric exam: PRESENT: appropriate affect, normal mood - She is very pleased to be discharging to home. ABSENT: agitated, anxious Focused psych exam: ABSENT: delusional, restlessness Skin exam: PRESENT: dry, normal color, warm. ABSENT: rash Results Laboratory Results: WBC 8.5 10^3/uL (4.0-10.5) 07/17/19 08:08 RBC 4.41 10^6/uL (3.72-5.28) 07/17/19 08:08 Hgb 13.6 g/dL (12.0-15.5) 07/17/19 08:08 Hct 39.4 % (36.0-47.0) 07/17/19 08:08 MCV 89 fl (80-97) 07/17/19 08:08 MCH 30.8 pg (27.0-33.4) 07/17/19 08:08 MCHC 34.5 g/dL (32.0-36.0) 07/17/19 08:08 RDW 13.4 % (11.5-14.0) 07/17/19 08:08 Plt Count 250 10^3/uL (150-450) 07/17/19 08:08 Lymph % (Auto) 16.6 % (13-45) 07/16/19 14:55 Adams % (Auto) 9.7 % (3-13) 07/16/19 14:55 Eos % (Auto) 0.6 % (0-6) 07/16/19 14:55 Baso % (Auto) 0.5 % (0-2) 07/16/19 14:55 Absolute Neuts (auto) 6.8 10^3/uL (1.7-8.2) 07/16/19 14:55 Absolute Lymphs (auto) 1.6 10^3/uL (0.5-4.7) 07/16/19 14:55 Absolute Monos (auto) 0.9 10^3/uL (0.1-1.4) 07/16/19 14:55 Absolute Eos (auto) 0.1 10^3/uL (0.0-0.6) 07/16/19 14:55 Absolute Basos (auto) 0.0 10^3/uL (0.0-0.2) 07/16/19 14:55 Seg Neutrophils % 72.6 % (42-78) 07/16/19 14:55 Sodium 137.4 mmol/L (137-145) 07/17/19 08:08 Potassium 4.1 mmol/L (3.6-5.0) D 07/17/19 08:08 Chloride 102 mmol/L (98-107) 07/17/19 08:08 Carbon Dioxide 23 mmol/L (22-30) 07/17/19 08:08 Anion Gap 12 (5-19) 07/17/19 08:08 BUN 19 mg/dL (7-20) 07/17/19 08:08 Creatinine 1.08 mg/dL (0.52-1.25) 07/17/19 08:08 Est GFR ( Amer) 59 (>60) L 07/17/19 08:08 Est GFR (MDRD) Non-Af 49 (>60) L 07/17/19 08:08 Glucose 149 mg/dL (75-110) H 07/17/19 08:08 Calcium 9.5 mg/dL (8.4-10.2) 07/17/19 08:08 Magnesium 1.8 mg/dL (1.6-2.3) 07/17/19 08:08 Total Bilirubin 0.6 mg/dL (0.2-1.3) 07/16/19 14:55 Direct Bilirubin 0.3 mg/dL (0.0-0.4) 07/16/19 14:55 Neonat Total Bilirubin Not Reportable 07/16/19 14:55 Neonat Direct Bilirubin Not Reportable 07/16/19 14:55 Neonat Indirect Bili Not Reportable 07/16/19 14:55 AST 37 U/L (14-36) H 07/16/19 14:55 ALT 37 U/L (<35) 07/16/19 14:55 Alkaline Phosphatase 116 U/L (38-126) 07/16/19 14:55 Creatine Kinase 47 U/L (30-135) 07/17/19 08:08 CK-MB (CK-2) 0.57 ng/mL (<4.55) 07/17/19 08:08 Troponin I < 0.012 ng/mL 07/17/19 08:08 Total Protein 7.9 g/dL (6.3-8.2) 07/16/19 14:55 Albumin 4.6 g/dL (3.5-5.0) 07/16/19 14:55 TSH 0.63 uIU/mL (0.47-4.68) 07/17/19 08:08 Free T3 pg/mL 3.52 pg/mL (2.77-5.27) 07/16/19 14:55 Urine Color STRAW 07/16/19 19:07 Urine Appearance CLEAR 07/16/19 19:07 Urine pH 6.0 (5.0-9.0) 07/16/19 19:07 Ur Specific Oneco 1.004 07/16/19 19:07 Urine Protein NEGATIVE mg/dL (NEGATIVE) 07/16/19 19:07 Urine Glucose (UA) NEGATIVE mg/dL (NEGATIVE) 07/16/19 19:07 Urine Ketones NEGATIVE mg/dL (NEGATIVE) 07/16/19 19:07 Urine Blood SMALL (NEGATIVE) H 07/16/19 19:07 Urine Nitrite NEGATIVE (NEGATIVE) 07/16/19 19:07 Urine Bilirubin NEGATIVE (NEGATIVE) 07/16/19 19:07 Urine Urobilinogen NEGATIVE mg/dL (<2.0) 07/16/19 19:07 Ur Leukocyte Esterase NEGATIVE (NEGATIVE) 07/16/19 19:07 Urine WBC (Auto) 1 /HPF 07/16/19 19:07 Urine RBC (Auto) 1 /HPF 07/16/19 19:07 U Hyaline Cast (Auto) 1 /LPF 07/16/19 19:07 Squamous Epi Cells Auto <1 /HPF 07/16/19 19:07 Urine Mucus (Auto) RARE /LPF 07/16/19 19:07 Urine Ascorbic Acid NEGATIVE (NEGATIVE) 07/16/19 19:07 07/16/19 07/16/19 07/16/19 14:55 19:33 19:33 CK-MB (CK-2) 0.76 Troponin I < 0.012 < 0.012 Cancelled 07/17/19 07/17/19 01:26 08:08 CK-MB (CK-2) 0.68 0.57 Troponin I < 0.012 < 0.012 Impressions: Chest X-Ray 07/16/19 14:29 IMPRESSION: No acute cardiopulmonary process. Plan Health Concerns: Morbid obesity with this adverse effects on overall health. New arrhythmia appears well controlled. Plan of Treatment: And extended release diltiazem 240 mg daily and apixaban 5 mg twice daily to the patient's regimen. Follow-up with Dr. Meléndez as well as her primary care Dr. Renner. 90-day prescriptions were sent to [facility] for diltiazem and apixaban. A 10-day supply was sent to a local pharmacy so as not to interrupt therapy. Goals: Good rate control of her fibrillation. Weight loss would help multiple comorbidities. Time Spent: Greater than 30 Minutes Stroke Is this a Stroke Patient?: No Acute Heart Failure - Is this a Heart Failure Patient?: No
[2019-07-17] MEDS ORDERED: APIXABAN 5 MG TABLET PO SCH (18:00)
[2019-07-17] MEDS ORDERED: ATORVASTATIN CALCIUM 10 MG TABLET PO SCH (22:00)
[2019-07-17] MEDS ORDERED: RIVAROXABAN 10 MG TABLET PO SCH (22:00)
[2019-07-17] MEDS ORDERED: GABAPENTIN 300 MG CAPSULE PO SCH (22:00)
[2019-07-18] MEDS ORDERED: (PENDING PHARMACY ID) (Lisinopril/Hydrochlorothiazide [Lisinopril-Hctz 20-25 Mg Tab] 1 EAC PO SCH (10:00)
[2019-07-18] MEDS ORDERED: DILTIAZEM HCL 240 MG CAPSULE.CR PO SCH (10:00)
[2019-07-18] MEDS ORDERED: HYDROCHLOROTHIAZIDE 25 MG TABLET PO SCH (10:00)
[2019-07-18] MEDS ORDERED: LISINOPRIL 10 MG TABLET PO SCH (10:00)
== END 2019-07-17 16:07 | disposition home or self-care (01) ==
LOC: ER 13:47 → EH 23:13 → INTOOBSV 23:20 → OBSVTOIN 23:20 → 3W 07-17 01:12
PROVIDERS: ADMIT Emergency Medicine; ATTEND Emergency Medicine
DX: I48.91 Unspecified atrial fibrillation (principal); I10 Essential (primary) hypertension; E78.5 Hyperlipidemia, unspecified; E66.01 Morbid (severe) obesity due to excess calories; Z68.41 Body mass index [BMI] 40.0-44.9, adult; M17.12 Unilateral primary osteoarthritis, left knee; R11.0 Nausea; Z79.899 Other long term (current) drug therapy; Z79.01 Long term (current) use of anticoagulants; Z85.3 Personal history of malignant neoplasm of breast; Z90.13 Acquired absence of bilateral breasts and nipples; Z79.82 Long term (current) use of aspirin
CPT/HCPCS: 93005; 99291; 99292; 96372; 96374; 36415 ×2; 82553 ×2; 82550 ×2; 83735; 84443; 85025; 85027; 80048; 80053; 81001; 84484 ×2; 84481; 71045; 93010; A9270 ×10; J3490 ×4; J1650